=== PATIENT | female | born 2000 | race Caucasian/White ===

== ENCOUNTER 2024-05-05 11:35 | Outpatient (CLI) | payer BC ==
[2024-05-05 14:33] VITALS: BP 138/77; PULSE 65; RESP 17; TEMP 97.9
--- NOTE | 2024-05-26 23:08 | P.MSEPDOC ---
Presenting Problems - Arrival Data Date of Arrival on Unit: 05/05/24 Time of Arrival on Unit: 11:35 Mode of Transport: Ambulatory - Complaint OB-Reason for Admission/Chief Complaint: Rule Out SROM Comment: pt presents to triage for upper abd pain that started last night, rates 7/10, intermittant sharp and shooting Medical History - Information : 2 Para: 0 Term: 0 : 0 Abortions: Spontaneous or Elective: 0 Number of Living Children: 0 - Gestational Age Gestational Age by TL (wks/days): 39 Weeks and 0 Days Review of Systems - Review of Systems Constitutional: No problems Breast: No problems ENT: No problems Cardiovascular: No problems Respiratory: No problems Gastrointestinal: No problems Genitourinary: No problems Musculoskeletal: No problems Neurological: No problems Skin: No problems Vital Signs - Temperature Temperature: 97.9 F Temperature Source: Temporal Artery Scan - Pulse Right Brachial Pulse Rate: 65 Pulse Assessment Method: Automatic Cuff - Respirations Respiratory Rate: 17 Oxygen Delivery Method: Room Air - Blood Pressure Right Arm Blood Pressure: 138/77 Blood Pressure Mean: 97 Blood Pressure Source: Automatic Cuff Medical Screen Scoring - Cervical Exam Dilation (cm): 4 Effacement (%): 100 Station: -2 Membranes: Intact - Uterine Contractions Frequency From (mins): 4 Frequency To (mins): 7 Duration From (seconds): 50 Duration To (seconds): 70 Intensity: Mild Resting: Soft to palpation - Assessment - Baby A Baseline FHR: 120 Heart Rate - NICHD Category: Category I (Normal) NST: Reactive Physician Notification - Physician Notified Physician Notified Date: 05/05/24 Physician Notified Time: 12:32 New Order Received: Yes - Notification Comment Comment: reactive nst, amniosure negative, pt not feeling contractions, wants to be discharged home, she has appt on Wed next week in the office Maternal Triage Index - Maternal Triage Index Presenting for scheduled procedure w/no complaint: No - Stat/Priority 1 Stat Priority 1: No - Urgent/Priority 2 Urgent Priority 2: No - Prompt/Priority 3 Prompt Priority 3: Yes Criteria Met for Priority 3: pt presents to triage for possible SROM this am Disposition - Disposition OB Disposition: Triage, Discharge to home, Written follow up instructions reviewed Discharge Date: 05/05/24 Discharge Time: 12:35 I agree with the RN Medical Screening Exam: Yes Case reviewed; plan agreed upon as documented in EMR&OBIX.: Yes Diagnosis: FALSE LABOR, UNSPECIFIED
== END 2024-05-05 12:35 | disposition home or self-care (01) ==
LOC: FBPOP 11:35
PROVIDERS: ATTEND Obstetrics & Gynecology
DX: O47.1 False labor at or after 37 completed weeks of gestation (principal); Z3A.39 39 weeks gestation of pregnancy; Z88.0 Allergy status to penicillin
CPT/HCPCS: 59025; 84112; 99213

== ENCOUNTER 2024-05-06 21:18 | Outpatient (CLI) | payer BC ==
[2024-05-06 22:57] VITALS: BP 135/75; PULSE 69; RESP 16; TEMP 96.7
--- NOTE | 2024-05-12 13:34 | P.MSEPDOC ---
Presenting Problems - Arrival Data Date of Arrival on Unit: 05/06/24 Time of Arrival on Unit: 21:18 Mode of Transport: Wheelchair - Complaint OB-Reason for Admission/Chief Complaint: Possible Onset of Labor Comment: pt. present to unit due to lower back pain and cramping rating 8/10 for the last hour and a half Medical History - Information : 2 Para: 0 Term: 0 : 0 Abortions: Spontaneous or Elective: 1 Number of Living Children: 0 - Gestational Age Gestational Age by TL (wks/days): 39 Weeks and 1 Days - History Complications: Smoker Comment: THC use Review of Systems - Review of Systems Constitutional: No problems Breast: No problems ENT: No problems Cardiovascular: No problems Respiratory: No problems Gastrointestinal: No problems Genitourinary: No problems Musculoskeletal: No problems Neurological: No problems Skin: No problems Vital Signs - Temperature Temperature: 96.7 F Temperature Source: Temporal Artery Scan - Pulse Pulse Oximetery Pulse Rate: 69 Pulse Assessment Method: Automatic Cuff - Respirations Respiratory Rate: 16 Oxygen Delivery Method: Room Air O2 Sat by Pulse Oximetry: 98 - Blood Pressure Right Arm Blood Pressure: 135/75 Blood Pressure Mean: 95 Blood Pressure Source: Automatic Cuff Medical Screen Scoring - Cervical Exam Dilation (cm): 4 Effacement (%): 90 Station: -2 Membranes: Intact - Uterine Contractions Frequency From (mins): 2 Frequency To (mins): 7 Duration From (seconds): 30 Duration To (seconds): 60 Intensity: Mild Resting: Soft to palpation - Assessment - Baby A Baseline FHR: 120 Heart Rate - NICHD Category: Category I (Normal) NST: Reactive Physician Notification - Physician Notified Physician Notified Date: 05/06/24 Physician Notified Time: 22:33 Physician: Luba Patterson New Order Received: Yes - Notification Comment Comment: no change with in the hour, offered pt. to stay another hour, pt. states she would like to go home and come back if needed, pt. dose state contractions do feel like they spaced out a bit, order to put pt. on pelvic rest, and have pt. follow up in office this week . Maternal Triage Index - Maternal Triage Index Presenting for scheduled procedure w/no complaint: No - Stat/Priority 1 Stat Priority 1: No - Urgent/Priority 2 Urgent Priority 2: No - Prompt/Priority 3 Prompt Priority 3: No - Non-Urgent/Priority 4 Non-Urgent Priority 4: Yes Criteria Met for Priority 4: 39.1, cramping and back pain Disposition - Disposition OB Disposition: Discharge to home Discharge Date: 05/06/24 Discharge Time: 22:40 I agree with the RN Medical Screening Exam: Yes Case reviewed; plan agreed upon as documented in EMR&OBIX.: Yes Diagnosis: FALSE LABOR AT OR AFTER 37 COMPLETED WEEKS OF GESTATION
== END 2024-05-06 22:40 | disposition home or self-care (01) ==
LOC: FBPOP 21:18
PROVIDERS: ATTEND Obstetrics & Gynecology Obstetrics
DX: O47.1 False labor at or after 37 completed weeks of gestation (principal); Z3A.39 39 weeks gestation of pregnancy; Z88.0 Allergy status to penicillin
CPT/HCPCS: 59025; 99213

== ENCOUNTER 2024-05-07 05:30 | Inpatient (IN) | payer BC, OTHER ==
[2024-05-07] MEDS ORDERED: METHYLERGONOVINE 0.2 MG/ML 1 ML AMP IM PRN (05:43)
[2024-05-07] MEDS ORDERED: CARBOPROST TROMETHAMINE 250 MCG/ML 1 ML AMP IM PRN (05:43)
[2024-05-07] MEDS ORDERED: TERBUTALINE 1 MG/ML VIAL SQ PRN (05:43)
[2024-05-07] MEDS ORDERED: miSOPROStoL 200 MCG TAB RECTAL PRN (05:43)
[2024-05-07] MEDS ORDERED: miSOPROStoL 200 MCG TAB PO PRN (05:43)
[2024-05-07] MEDS ORDERED: TRANEXAMIC 1,000 MG/100ML-NACL 1,000 MG in EMPTY BAG 1 BAG IV PRN (05:43)
[2024-05-07] MEDS ORDERED: OXYTOCIN 30 UNITS/500 ML NS 30 UNIT in SALINE 1 500ML.BAG IV SCH (05:45)
[2024-05-07] MEDS: LACTATED RINGERS 1,000 ML IV SCH ×2 (05:55→07:02)
[2024-05-07 06:09] LABS: Basophils % (A) 0 %; Eosinophils # (A) 0.1 k/uL (0-0.7); Eosinophils % (A) 1 %; HCT 35.6 % (34.0-46.0); HGB 12.3 gm/dL (11.4-16.0); Lymphocytes # (A) 2.3 k/uL (1.0-4.8); Lymphocytes % (A) 12 %; MCH 28.9 pg (25.0-35.0); MCHC 34.7 g/dL (31.0-37.0); MCV 83.5 fL (80.0-100.0); Mean Platelet Volume 13.3; Monocytes # (A) 0.9 k/uL (0-1.0); Monocytes % (A) 5 %; Neutrophils # (A) 15.9 k/uL (1.3-7.7); Neutrophils % (A) 81 %; Platelet Count 180 k/uL (150-450); RBC 4.26 m/uL (3.80-5.40); RDW 13.3 % (11.5-15.5); WBC 19.7 k/uL (3.8-10.6)
[2024-05-07] MEDS ORDERED: fentaNYL (PF) 50 MCG/ML 5 ML AMP ONE (06:34)
[2024-05-07] MEDS ORDERED: ROPIVACAINE 5 MG/ML 30 ML VIAL ONE (06:34)
[2024-05-07] MEDS ORDERED: SODIUM CHLORIDE 0.9% 250 ML BAG ONE (06:34)
[2024-05-07 06:58] LABS: Large Platelets Present
[2024-05-07] MEDS: LIDOCAINE 0.5% (PF) 5 MG/ML (50 ML SDV) SQ PRN (07:42)
[2024-05-07] MEDS: OXYTOCIN 10 UNIT/ML 1 ML VIAL IM PRN (07:42)
[2024-05-07] MEDS: NALBUPHINE 10 MG/ML (10 ML MDV) IM PRN (07:55)
--- NOTE | 2024-05-07 08:11 | P.HPOB ---
History of Present Illness H&P Date: 05/07/24 Chief Complaint: IUP at 39 and 2/7, active labor This is a 23-year-old 2 para 0-0-1-0 at 39-2/7 weeks that presents to labor and delivery in active labor. Patient was seen previously through the weekend with complaints of contractions and no cervical change was appreciated. Patient presented uncomfortable with contractions and was admitted this morning. Patient has been receiving routine care which has been essentially uncomplicated. Patient does have a history of anxiety and depression and THC use. On blood work this patient is a blood type of O+, rubella status immune, hepatitis B surface engine negative, HIV negative, RPR is nonreactive, grew beta strep cultures negative. Review of Systems Constitutional: Denies chills, Denies fatigue, Denies fever Ears, nose, mouth and throat: Denies headache Cardiovascular: Reports leg edema Respiratory: Denies dyspnea Gastrointestinal: Denies nausea, Denies vomiting Genitourinary: Reports Past Medical History Past Medical History: No Reported History History of Any Multi-Drug Resistant Organisms: None Reported Past Surgical History: Cholecystectomy Past Anesthesia/Blood Transfusion Reactions: No Reported Reaction Past Psychological History: Anxiety, Depression Smoking Status: Current every day smoker Additional Past Alcohol Use History / Comment(s): THC use Past Drug Use History: Marijuana Medications and Allergies Home Medications Medication Instructions Recorded Confirmed Type Clindamycin [Cleocin] 300 mg PO TID 05/05/24 05/07/24 History Ondansetron [Zofran] 4 mg PO Q8HR PRN 05/05/24 05/07/24 History Allergies Allergy/AdvReac Type Severity Reaction Status Date / Time amoxicillin Allergy Rash/Hives Verified 05/05/24 11:54 Penicillins Allergy Rash/Hives Verified 05/05/24 11:54 Exam Osteopathic Statement: *. No significant issues noted on an osteopathic structural exam other than those noted in the History and Physical/Consult. Vital Signs Resp BP Pulse Ox 05/07/24 05:42 18 153/79 98 Intake and Output 05/06/24 05/07/24 05/07/24 22:59 06:59 14:59 Other: Weight 90.718 kg In general this is a well-nourished well-developed developed female in active labor, breathing is nonlabored, abdomen is gravid and appropriate for gestational age, on cervical exam she is completely dilated spontaneous rupture as I entered the room. Thin meconium fluid was appreciated. heart tones were noted to be category 1 and she is junior every 2 to 3 minutes. Results Result Diagrams: 05/07/24 05:43 Abnormal Lab Results - Last 24 Hours (Table) 05/07/24 Range/Units 05:43 WBC 19.7 H (3.8-10.6) k/uL Neutrophils # 15.9 H (1.3-7.7) k/uL Assessment and Plan (1) Term Current Visit: Yes Status: Acute Code(s): Z34.90 - ENCNTR FOR SUPRVSN OF NORMAL , UNSP, UNSP TRIMESTER SNOMED Code(s): 91397876 (2) Active labor Current Visit: Yes Status: Acute Code(s): VOF3089 - SNOMED Code(s): 911485005 (3) Spontaneous rupture of membranes Current Visit: Yes Status: Acute Code(s): QWM1950 - SNOMED Code(s): 421205939 (4) Thin meconium stained amniotic fluid Current Visit: Yes Status: Acute Code(s): P96.83 - MECONIUM STAINING SNOMED Code(s): 721974642 Plan: This is a 23-year-old 2 para 0-0-1-0 that presented to labor and delivery at 39-2/7 weeks in active labor. Patient is admitted and did request epidural. Epidural was placed by the anesthesia department with minimal relief of her discomfort. Patient is noted to be completely dilated and will commence pushing.
[2024-05-07] MEDS ORDERED: ZOLPIDEM 5 MG TAB PO PRN (08:12)
[2024-05-07] MEDS ORDERED: diphenhydrAMINE 25 MG CAP PO PRN (08:12)
[2024-05-07] MEDS ORDERED: diphenhydrAMINE 50 MG/ML 1 ML VIAL IVP PRN ×2 (08:12)
[2024-05-07] MEDS ORDERED: LANOLIN CREAM 1 GM TUBE TOPICAL PRN (08:12)
[2024-05-07] MEDS ORDERED: HYDROCORTISONE 2.5% RECTAL CREAM 30 GM TUBE RECTAL PRN (08:12)
[2024-05-07] MEDS ORDERED: BENZOCAINE/MENTHOL SPRAY 1 GM/SPRAY AEROSOL TOPICAL PRN (08:12)
[2024-05-07] MEDS ORDERED: diphenhydrAMINE 50 MG CAP PO PRN (08:12)
[2024-05-07] MEDS ORDERED: SIMETHICONE 80 MG CHEWABLE PO PRN (08:12)
--- NOTE | 2024-05-07 08:12 | P.PROBDLV ---
Vaginal Delivery Note - . Vaginal Delivery Note: 23-year-old G2, P0 at 39-2/7 weeks presents in active labor. Patient is admitted and epidural is placed per patient request. Patient progressed to complete, spontaneous rupture of membranes was appreciated with thin meconium stained fluid. Patient began pushing and with excellent maternal effort had a normal spontaneous vaginal delivery of a viable female infant at 735, weight of 7 pounds 8 ounces, Apgars of 9 and 9 at 1 and 5 minutes respectively. After 2-minute delay the umbilical cord was doubly clamped and cut and the placenta was delivered spontaneously intact with a three-vessel cord being noted. Inspection the patient's vaginal vault a right lateral vaginal wall laceration was appreciated along with bilateral labial lacerations. The lateral wall laceration was injected with lidocaine and repaired in the usual fashion with 3- 0 Rapide. Hemostasis was noted after repair. The left labial laceration was not bleeding therefore no repair was done. Uterus was noted to be firm and below the umbilicus at this time. All counts were noted be correct x 2 at the end of the delivery. Patient and tolerated delivery well and are resting comfortably.
[2024-05-07] MEDS: IBUPROFEN 800 MG TAB PO SCH (09:50)
[2024-05-07] MEDS: ACETAMINOPHEN TAB 500 MG TAB PO SCH (13:18)
[2024-05-07] MEDS: SENNOSIDES-DOCUSATE SODIUM 1 EACH TAB PO SCH (20:17)
[2024-05-08 07:35] VITALS: BP 127/67; PULSE 87; RESP 16; TEMP 98.6
--- NOTE | 2024-05-08 09:07 | P.DS ---
Providers Date of admission: 05/07/24 05:39 Expected date of discharge: 05/08/24 Attending physician: Gregoria Medrano MD Primary care physician: Stated None Hospital Course: Ms. Pierce is a 23 year old now PPD#1 s/p normal spontaneous vaginal delivery without complications. The patient is doing well this morning and had no acute events overnight. She has no complaints this morning. She reports minimal lochia, passing flatus, voiding without difficulty, ambulating, and eating/drinking without nausea or vomiting. Infant doing well at bedside, breast feeding is going well. She denies chest pain, shortness of breathing, fevers, or chills overnight. She denies pain or swelling in the legs. restrictions are reviewed with the patient including pelvic rest for 6 weeks. The patient is encouraged to call the office if she experiences any heavy bleeding, foul-smelling discharge, breast complaints, or any if she has any other concerns. She will follow up in the office with in 6 weeks for exam. Patient plans to use Motrin and Tylenol OTC as needed. All questions are answered. Assessment: 23 year old PPD#1 s/p Patient Condition at Discharge: Good Plan - Discharge Summary New Discharge Prescriptions: No Action Ondansetron [Zofran] 4 mg PO Q8HR PRN PRN Reason: Nausea Clindamycin [Cleocin] 300 mg PO TID Discharge Medication List Clindamycin [Cleocin] 300 mg PO TID 05/05/24 [History] Ondansetron [Zofran] 4 mg PO Q8HR PRN 05/05/24 [History] Follow up Appointment(s)/Referral(s): Gregoria Medrano MD [STAFF PHYSICIAN] - 6 Weeks Activity/Diet/Wound Care/Special Instructions: Instructions 1. Do not begin any exercise program for 3 weeks. 2. Do not resume sexual relations for 6 weeks or longer if uncomfortable. 3. You may take tub baths or showers at any time. 4. You may use tampons if desired after 6 weeks. 5. Keep any areas repaired with stitches clean and dry. 6. If you are not nursing, wear a good fitting, supportive bra during the day and limit fluid intake for at least 1 week to prevent breast engorgement. 7. Call the office, , within the next week to make appointment for your 6 week checkup if it has not already been made. 8. Report any of the following occurrences to the doctor promptly: a. Heavy, excessive bleeding b. Chills, fever c. Burning or frequency of urination d. Pain or redness and breasts if nursing e. Increasing pain or swelling of vulva (stitches). In addition to the above instructions, the following additional should be followed: 1. No heavy lifting or straining (exercising) until after 6 week checkup. 2. Keep abdominal incision clean and dry: You may wear a dressing if more comfortable. 3. Make office appointment for 2 weeks after delivery date. Discharge Disposition: HOME SELF-CARE
== END 2024-05-08 11:45 | disposition home or self-care (01) | DRG 806 ==
LOC: FBPOP 05:30 → 4FBP 05:39
PROVIDERS: ADMIT Obstetrics & Gynecology Obstetrics; ATTEND Obstetrics & Gynecology
PROC: 10E0XZZ Delivery of Products of Conception, External Approach (ICD-10-PCS; principal; 2024-05-07)
PROC: 0HQ9XZZ Repair Perineum Skin, External Approach (ICD-10-PCS; 2024-05-07)
PROC: 0UQMXZZ Repair Vulva, External Approach (ICD-10-PCS; 2024-05-07)
DX: O42.02 Full-term premature rupture of membranes, onset of labor within 24 hours of rupture (principal); O99.324 Drug use complicating childbirth; Z37.0 Single live birth; F17.200 Nicotine dependence, unspecified, uncomplicated; O70.0 First degree perineal laceration during delivery; O77.0 Labor and delivery complicated by meconium in amniotic fluid; F32.A Depression, unspecified; F41.9 Anxiety disorder, unspecified; Z3A.39 39 weeks gestation of pregnancy; O99.344 Other mental disorders complicating childbirth; O99.334 Smoking (tobacco) complicating childbirth; Z88.1 Allergy status to other antibiotic agents; Z88.0 Allergy status to penicillin; Z90.49 Acquired absence of other specified parts of digestive tract; O26.893 Other specified pregnancy related conditions, third trimester; Z67.40 Type O blood, Rh positive; F12.90 Cannabis use, unspecified, uncomplicated
CPT/HCPCS: 85025; 86850; 86900; 86901